=== PATIENT | female | born 1985 | race Caucasian/White ===

== ENCOUNTER 2016-09-25 13:00 | Emergency (ER) | payer MEDICAID ==
[~2016-09-25] VITALS: Ht 162.6 cm; Wt 89.1 kg
[~2016-09-25 13:00] MED LIST: PRENAT PO
[2016-09-25 13:02] VITALS: Ht 162.6 cm; Wt 89.1 kg
[2016-09-25] MEDS ORDERED: SOD CHLORIDE 0.9% 1,000 ML IV STA (13:04)
[2016-09-25] MEDS ORDERED: morphine 4 MG/ML VIAL IV STA (13:04)
[2016-09-25] MEDS ORDERED: ONDANSETRON 4 MG INJ IV STA (13:04)
[2016-09-25 13:34] LABS: BASOPHILS % 0.4 % (0.0-2.0); EOSINOPHILS # 0.4 10^3/ul (0.0-0.5); EOSINOPHILS % 4.2 % (0.0-7.0); HEMATOCRIT 35.4 % (37.0-47.0); HEMOGLOBIN 11.4 g/dl (12.0-16.0); LYMPHOCYTES # 1.9 10^3/ul (0.8-2.9); LYMPHOCYTES % 21.9 % (15.0-51.0); MEAN CORPUSCULAR HEMOGLOBIN 27.9 pg (29.0-33.0); MEAN CORPUSCULAR HGB CONC 32.2 g/dl (32.0-37.0); MEAN CORPUSCULAR VOLUME 86.6 fl (82.0-101.0); MEAN PLATELET VOLUME 10.6 fl (7.4-10.4); MONOCYTE # 0.3 10^3/ul (0.3-0.9); MONOCYTES % 2.9 % (0.0-11.0); NEUTROPHIL # 5.7 10^3/ul (1.6-7.5); NEUTROPHILS % 67.1 % (39.0-77.0); PLATELET COUNT 562 10^3/UL (140-415); RED BLOOD COUNT 4.09 10^6/ul (4.20-5.40); RED CELL DISTRIBUTION WIDTH 14.1 % (11.5-14.5); WHITE BLOOD COUNT 8.5 10^3/ul (4.8-10.8)
[2016-09-25] MEDS ORDERED: DOCU-144 PO (13:34)
[2016-09-25] MEDS ORDERED: HYDR-906 PO (13:34)
[2016-09-25 13:46] LABS: INR 0.97; PARTIAL THROMBOPLASTIN TIME 32.2 Sec (25.0-35.0); PROTIME 12.9 Sec (12.2-14.2)
[2016-09-25 13:49] LABS: ALBUMIN 4.3 g/dl (3.3-4.9); ALBUMIN/GLOBULIN RATIO 1.1; BILIRUBIN,INDIRECT 0.3 mg/dl (0-1.1); BILIRUBIN,TOTAL 0.3 mg/dl (0.2-1.3); CALCIUM 9.1 mg/dl (8.4-10.2); CREATININE 0.65 mg/dl (0.44-1.00); POTASSIUM 4.3 mmol/L (3.5-5.1); TOTAL PROTEIN 8.2 g/dl (6.1-8.1)
[2016-09-25 14:53] VITALS: TEMP 98.1
[2016-09-25 15:03] LABS: ADD UMIC NO; UR ASCORBIC ACID NEGATIVE (NEGATIVE); UR BILIRUBIN (Dip) NEGATIVE (NEGATIVE); UR BLOOD (Dip) NEGATIVE (NEGATIVE); UR CLARITY SLIGHTLY CLOUDY (CLEAR); UR COLOR YELLOW (YELLOW); UR GLUCOSE (Dip) NEGATIVE (NEGATIVE); UR KETONES (Dip) NEGATIVE (NEGATIVE); UR LEUKOCYTE ESTERASE (Dip) NEGATIVE Leu/ul (NEGATIVE); UR MUCUS FEW /HPF (NONE SEEN); UR NITRITE (Dip) NEGATIVE (NEGATIVE); UR RBC 1 /HPF (0-5); UR SPECIFIC GRAVITY (Dip) 1.012 (1.003-1.030); UR SQUAMOUS EPITHELIAL CELL FEW /HPF (FEW); UR TOTAL PROTEIN (Dip) NEGATIVE (NEGATIVE); UR UROBILINOGEN (Dip) NEGATIVE (NEGATIVE)
[2016-09-25] MEDS ORDERED: HYDROmorphONE 1 MG/ML SYG IV STA ×2 (15:15→17:24)
[2016-09-25] MEDS ORDERED: IOHEXOL 300MG/ML 150 ML BTL ONE (15:33)
[2016-09-25] MEDS ORDERED: SOD CHLORIDE 0.9% 100 ML ONE (15:33)
--- NOTE | 2016-09-25 16:12 | RADRPT ---
PROCEDURE: CT Abdomen and Pelvis with contrast. CLINICAL INDICATION: Abdominal pain. Recent pancreas surgery. TECHNIQUE: CT scan of the abdomen and pelvis with contrast was performed . The patient was scanne d following the uncomplicated intravenous administration of 100 cc of Omnipaque 300. Coronal and sa gittal reformatted images were obtained from the axial source images. Images were reviewed on a high -resolution PACS workstation. images. The calculated radiation dose measures 1220.01 mGy centimeters . The CTDI measures 20.23 mGy. One or more of the following dose reduction techniques were used: - Automated exposure control. - Adjustment of the mA and/or kV according to patient size . - Use of iterative reconstruction technique. Images were reviewed on a high-resolution PACS workstation COMPARISON: None. FINDINGS: CT abdomen: The lung bases are remarkable for bibasilar atelectasis. The heart size is normal, without pericard ial thickening or effusion. The liver is normal in size and density without focal mass or intrahepa tic biliary dilatation. The spleen is normal in size and homogeneous in density. The stomach is pa rtially collapsed, but is grossly unremarkable. The patient has undergone partial resection of the pancreatic tail noting sutures in this region and there is also a surgical drain in the left upper q uadrant. There is infiltration in the mesentery and retroperitoneum without an larger drainable flu id collection. The adrenal glands are symmetric and normal. There is no evidence for hydronephrosis or hydroureter. Contour irregularities noted about the right kidney possibly from scarring and radha or infection. Enhancement the right kidney is currently normal. There is a small amount of peritoneal air like related to the recent surgery. There is also a small amount of fluid in the right paracolic gutter and Lopez's pouch. CT pelvis: The small bowel loops situated within the pelvis are unremarkable. The pelvic sidewalls and inguina l regions are clear. The sigmoid colon and rectum are no dilated. There is dense material within th e appendix also noting mild wall thickening and surrounding infiltration. There is an approximately 7.5 x 4.5 cm right ovarian complex cyst. The surrounding osseous structures are intact. No osteolytic or osteoblastic lesion is detected. IMPRESSION: 1. Evidence of recent pancreatic tail resection noting recent postsurgical changes in the soft tiss ues. There is a small amount of fluid in the region of the left pancreatic tail which may represent postoperative seroma. An infected collection cannot be excluded on the basis of CT alone, but no d rainable fluid collection is present. 2. Small amount of free peritoneal air and fluid as well, which may also be related to the recent s urgery, if symptoms persist consider a follow-up CT. 3. Nonspecific appearance of the appendix noting dense material within the appendix and minimal eben rounding infiltration, which could also new from the recent surgery or much less likely appendicitis , to be correlated clinically. 4. Hepatic steatosis. 5. 7.5 x 4.5 cm right ovarian cystic structure which is nonspecific on CT. A non-emergent follow- up ultrasound may be obtained to document resolution. Call report: A call report was made to Dr. Clark at 04:00 p.m. on 09/25/2016. RPTAT: PP .Sacha Humphries MD, Date Time Electronically viewed and signed by .Sacha Humphries MD, on 09/25/2016 16:12 .d/
[2016-09-25] MEDS ORDERED: POLY17PO6 PO (17:07)
[2016-09-25] MEDS ORDERED: OXYC-203 PO (17:07)
[2016-09-25 17:45] VITALS: BP 137/84; PULSE 92; RESP 16
--- NOTE | 2016-09-25 18:20 | ERD ---
ER Documentation Chief Complaint Date/Time DATE: 09/25/16 TIME: 18:14 Chief Complaint abd pain started at 1200 epigastric pain took norco w/o relief HPI 31-year-old female presented to the emergency room with postoperative abdominal pain in her left upper quadrant and left abdomen. She had surgery with resection of the head of her pancreas 2 weeks ago at [facility]. States that they have been considering removing her spleen but they did not need to. She has mild nausea as well as the pain. She had had some pain on and off but beginning at about noon she had some pain that was not relieved by [place]. She denies any fevers and chills. She does not feel weak ROS All systems reviewed and are negative except as per history of present illness. Medications Home Meds Active Scripts Polyethylene Glycol* (Miralax*) 17 Gm Powd.pack, 17 GM PO DAILY, #5 PACKET Prov:SKYLER VILLASHUA 09/25/16 Oxycodone HCl/Acetaminophen (Percocet 7.5-325 mg Tablet) 1 Each Tablet, 1 EACH PO Q6, #20 TAB Prov:MARIA DE JESUS VILLA DO 09/25/16 Reported Medications Hydrocodone/Acetaminophen ([place] 5-325 Tablet) Unknown Strength Tablet, 1 EACH PO DAILY Y for NEEDED, TAB 09/25/16 Docusate Sodium* (Colace*) 100 Mg Capsule, 100 MG PO Q24H Y for CONSTIPATION, # 30 CAP 09/25/16 Discontinued Reported Medications Multivit/Min/Fol Ac/Iron/Pren* ( S*) 1 Tab Tab, 1 TAB PO DAILY, TAB 10/13/15 Allergies Allergies: Coded Allergies: No Known Drug Allergies (Verified Allergy, Mild, 09/25/16) PMhx/Soc History of Surgery: Yes (, sx to pancreas [id number] ago at [facility]) Anesthesia Reaction: No Hx Neurological Disorder: No Hx Respiratory Disorders: No Hx Cardiac Disorders: No Hx Psychiatric Problems: No Hx Miscellaneous Medical Probl: No Hx Alcohol Use: No Hx Substance Use: No Hx Tobacco Use: No Smoking Status: Never smoker Physical Exam Vitals Vital Signs Date Time Temp Pulse Resp B/P Pulse Ox O2 Delivery O2 Flow Rate FiO2 09/25/16 17:45 92 16 137/84 98 Room Air 09/25/16 17:04 77 12 137/74 100 Room Air 09/25/16 14:53 98.1 77 18 117/61 100 Room Air 09/25/16 13:20 98.1 87 18 112/68 99 Room Air 09/25/16 13:02 98.1 110 22 152/72 98 Physical Exam Const: [] Mild distress, stating that she is in significant pain Head: Atraumatic Eyes: Normal Conjunctiva ENT: Normal External Ears, Nose and Mouth. Neck: Full range of motion..~ No meningismus. Resp: Clear to auscultation bilaterally Cardio: Regular rate and rhythm, no murmurs Abd: Soft, mild, no tenderness in the left upper quadrant and left mid abdomen, no guarding or rebound, lower abdominal drain in place that is draining well with the site clean dry and intact, non distended. Normal bowel sounds Skin: No petechiae or rashes Back: No midline or flank tenderness Ext: No cyanosis, or edema Neur: Awake and alert and oriented 3, no focal deficits Psych: Normal Mood and Affect Result Diagram: 09/25/16 1305 09/25/16 1305 Results 24 hrs Laboratory Tests Test 09/25/16 13:05 09/25/16 14:30 09/25/16 15:36 White Blood Count 8.510^3/ul Red Blood Count 4.0910^6/ul Hemoglobin 11.4g/dl Hematocrit 35.4% Mean Corpuscular Volume 86.6fl Mean Corpuscular Hemoglobin 27.9pg Mean Corpuscular Hemoglobin Concent 32.2g/dl Red Cell Distribution Width 14.1% Platelet Count 96608^3/UL Mean Platelet Volume 10.6fl Neutrophils % 67.1% Lymphocytes % 21.9% Monocytes % 2.9% Eosinophils % 4.2% Basophils % 0.4% Nucleated Red Blood Cells % 0.0/100WBC Neutrophils # 5.710^3/ul Lymphocytes # 1.910^3/ul Monocytes # 0.310^3/ul Eosinophils # 0.410^3/ul Basophils # 0.010^3/ul Nucleated Red Blood Cells # 0.010^3/ul Prothrombin Time 12.9Sec Prothrombin Time Ratio 1.0 INR International Normalized Ratio 0.97 Activated Partial Thromboplast Time 32.2Sec Sodium Level 142mmol/L Potassium Level 4.3mmol/L Chloride Level 101mmol/L Carbon Dioxide Level 24mmol/L Anion Gap 21 Blood Urea Nitrogen 12mg/dl Creatinine 0.65mg/dl Glucose Level 114mg/dl Lactic Acid Level 2.1mmol/L Calcium Level 9.1mg/dl Total Bilirubin 0.3mg/dl Direct Bilirubin 0.00mg/dl Indirect Bilirubin 0.3mg/dl Aspartate Amino Transf (AST/SGOT) 33IU/L Alanine Aminotransferase (ALT/SGPT) 41IU/L Alkaline Phosphatase 80IU/L Total Protein 8.2g/dl Albumin 4.3g/dl Globulin 3.90g/dl Albumin/Globulin Ratio 1.10 Lipase 122U/L Urine Color YELLOW Urine Clarity SLIGHTLY CLOUDY Urine pH 6.0 Urine Specific [place] 1.012 Urine Ketones NEGATIVEmg/dL Urine Nitrite NEGATIVEmg/dL Urine Bilirubin NEGATIVEmg/dL Urine Urobilinogen NEGATIVEmg/dL Urine Leukocyte Esterase NEGATIVELeu/ul Urine Microscopic RBC 1/HPF Urine Microscopic WBC 1/HPF Urine Squamous Epithelial Cells FEW/HPF Urine Mucus FEW/HPF Urine Hemoglobin NEGATIVEmg/dL Urine Glucose NEGATIVEmg/dL Urine Total Protein NEGATIVEmg/dl Serum HCG, Qualitative NEGATIVE Current Medications Medications (Trade) Dose Ordered Sig/Mike Route PRN Reason Start Time Stop Time Status Last Admin Dose Admin Sodium Chloride (NS) 1,000 ml @ 1,000 mls/hr Q1H STAT IV 09/25/16 13:04 09/25/16 14:03 DC 09/25/16 13:19 Morphine Sulfate (morphine) 6 mg ONCE STAT IV 09/25/16 13:04 09/25/16 13:06 DC 09/25/16 13:19 Ondansetron HCl (Zofran Inj) 4 mg ONCE STAT IV 09/25/16 13:04 09/25/16 13:06 DC 09/25/16 13:18 Hydromorphone HCl (Dilaudid) 1 mg ONCE STAT IV 09/25/16 15:15 09/25/16 15:16 DC 09/25/16 15:22 IV Flush 10 ml 10 ml STK-MED ONCE .ROUTE 09/25/16 15:33 09/25/16 15:34 DC 09/25/16 15:46 Sodium Chloride (NS) 100 ml @ ud STK-MED ONCE .ROUTE 09/25/16 15:33 09/25/16 15:34 DC 09/25/16 15:46 Iohexol (Omnipaque 300mg/ ml) 150 ml STK-MED ONCE .ROUTE 09/25/16 15:33 09/25/16 15:34 DC 09/25/16 15:46 Hydromorphone HCl (Dilaudid) 1 mg ONCE STAT IV 09/25/16 17:24 09/25/16 17:25 DC Procedures/MDM Patient with postoperative abdominal pain at the site without evidence of acute infection. Initial tachycardia increased respiratory rate immediately converted to stable vital signs on recheck prior to medication administration. Patient was given Zofran, a liter of normal saline as well as morphine and Dilaudid which made her pain feel much better. I spoke with the radiologist who read her CT she has normal postoperative changes. I offered the patient admission if she still had any significant pain. She said that she would prefer to go home. I told her return to the emergency room immediately if she has any return of pain. She is in stable condition. I am advising her to go to visit her surgeon at [facility] first thing on Tuesday. CT abdomen pelvis interpretation with contrast: Normal postoperative fluid and postoperative changes in the left upper quadrant. I also see moderate retained stool throughout the colon. No obstruction, very mild free air. No fractures Departure Diagnosis: Primary Impression: Post-op pain Additional Impression: Acute abdominal pain Condition: Stable Patient Instructions: Post Op Wound Check, Pain Additional Instructions: Return to [facility] Tuesday for recheck. MARIA DE JESUS VILLA DO Sep 25, 2016 18:20
== END 2016-09-25 17:51 | disposition home or self-care (01) ==
LOC: E/R 13:00
DX: G89.18 Other acute postprocedural pain (principal); R10.12 Left upper quadrant pain; R11.0 Nausea
CPT/HCPCS: 36415; 74177; 80053; 81001; 83605; 83690; 84703; 85025; 85610; 85730; 96374; 96375; J1170; J2270; J2405; J7030; Q9967; Z7502; Z7610; 81003

== ENCOUNTER 2016-09-25 18:34 | Inpatient (IN) | payer MEDICAID ==
[~2016-09-25] VITALS: Ht 162.6 cm; Wt 89.4 kg
[~2016-09-25 18:34] MED LIST changes: +DOCU-144 PO; +HYDR-906 PO; +OXYC-203 PO; +POLY17PO6 PO
[2016-09-25] MEDS ORDERED: SODIUM CHLORIDE 0.9% 1L BAG IV* STA (19:08)
[2016-09-25] MEDS ORDERED: PIPER-TAZO 3.375 GM IV (PMX) 100 ML IVPB STA (19:08)
[2016-09-25 19:20] LABS: BASOPHIL # 0.1 10^3/ul (0.0-0.1); BASOPHILS % 0.3 % (0.0-2.0); EOSINOPHILS # 0.3 10^3/ul (0.0-0.5); EOSINOPHILS % 1.6 % (0.0-7.0); HEMATOCRIT 34.7 % (37.0-47.0); LYMPHOCYTES # 2.7 10^3/ul (0.8-2.9); LYMPHOCYTES % 12.7 % (15.0-51.0); MEAN CORPUSCULAR HEMOGLOBIN 27.8 pg (29.0-33.0); MEAN CORPUSCULAR HGB CONC 31.7 g/dl (32.0-37.0); MEAN CORPUSCULAR VOLUME 87.8 fl (82.0-101.0); MEAN PLATELET VOLUME 10.9 fl (7.4-10.4); MONOCYTE # 0.6 10^3/ul (0.3-0.9); MONOCYTES % 2.9 % (0.0-11.0); NEUTROPHIL # 17.4 10^3/ul (1.6-7.5); NEUTROPHILS % 81.2 % (39.0-77.0); PLATELET COUNT 599 10^3/UL (140-415); RED BLOOD COUNT 3.95 10^6/ul (4.20-5.40); RED CELL DISTRIBUTION WIDTH 14.4 % (11.5-14.5); WHITE BLOOD COUNT 21.4 10^3/ul (4.8-10.8)
--- NOTE | 2016-09-25 19:53 | RADRPT ---
PROCEDURE: XR Chest. CLINICAL INDICATION: Sepsis. Shortness of breath. TECHNIQUE: Single frontal view. COMPARISON: None. FINDINGS: There is atelectasis at both lung bases and low lung volumes. The lungs are otherwise clear. The heart size is normal. There is no pleural effusion. There is no pneumothorax. IMPRESSION: 1. Atelectasis at the lung bases and low lung volumes. 2. Otherwise normal chest x-ray. RPTAT: QQ .Michael Stevenson MD, MD Date Time Electronically viewed and signed by .Michael Stevenson MD, MD on 09/25/2016 19:52 .R/
[2016-09-25] MEDS ORDERED: HYDROmorphONE 1 MG/ML SYG IV STA ×2 (20:01→22:36)
[2016-09-25 22:00] VITALS: TEMP 98.6
--- NOTE | 2016-09-25 22:28 | ERA ---
ER Documentation Chief Complaint Date/Time DATE: 09/25/16 TIME: 22:20 Chief Complaint FELT DIZZY/NEAR SYNCOPAL EPISODE HPI This 31-year-old female who I had recently discharged because she felt well and wanted to go home returns for a near syncopal episode where she got very lightheaded in the waiting room. Blood pressure was low at that time. Still has left upper quadrant abdominal pain as before and had a pancreatic resection 2 weeks ago easily however. CT head showed normal postop changes. Patient had no signs of infection at that time. ROS All systems reviewed and are negative except as per history of present illness. Medications Home Meds Active Scripts Polyethylene Glycol* (Miralax*) 17 Gm Powd.pack, 17 GM PO DAILY, #5 PACKET Prov:MARIA DE JESUS VILLA 09/25/16 Oxycodone HCl/Acetaminophen (Percocet 7.5-325 mg Tablet) 1 Each Tablet, 1 EACH PO Q6, #20 TAB Prov:ALLENSKYLERMARIA DE JESUSJOSEPH MCBRIDE 09/25/16 Reported Medications Hydrocodone/Acetaminophen ([place] 5-325 Tablet) Unknown Strength Tablet, 1 EACH PO DAILY Y for NEEDED, TAB 09/25/16 Docusate Sodium* (Colace*) 100 Mg Capsule, 100 MG PO Q24H Y for CONSTIPATION, # 30 CAP 09/25/16 Discontinued Reported Medications Multivit/Min/Fol Ac/Iron/Pren* ( S*) 1 Tab Tab, 1 TAB PO DAILY, TAB 10/13/15 Allergies Allergies: Coded Allergies: No Known Drug Allergies (Verified Allergy, Mild, 09/25/16) PMhx/Soc History of Surgery: Yes (, sx to pancreas [id number] ago at [facility]) Anesthesia Reaction: No Hx Neurological Disorder: No Hx Respiratory Disorders: No Hx Cardiac Disorders: No Hx Psychiatric Problems: No Hx Miscellaneous Medical Probl: No Hx Alcohol Use: No Hx Substance Use: No Hx Tobacco Use: No Smoking Status: Never smoker Physical Exam Vitals Vital Signs Date Time Temp Pulse Resp B/P Pulse Ox O2 Delivery O2 Flow Rate FiO2 09/25/16 22:00 98.6 87 18 121/64 99 Room Air 09/25/16 20:00 98.6 95 16 123/58 100 Room Air 09/25/16 18:46 98.6 92 16 104/53 96 Room Air 09/25/16 18:34 98.6 65 16 73/50 96 Physical Exam Const: [] Moderate distress Head: Atraumatic Eyes: Normal Conjunctiva ENT: Normal External Ears, Nose and Mouth. Neck: Full range of motion..~ No meningismus. Resp: Clear to auscultation bilaterally Cardio: Regular tachycardia, no murmurs Abd: Soft, mild to moderate left upper quadrant tenderness without guarding or rebound, surgical drain in place in left mid abdomen, no signs of surrounding erythema non distended. Normal bowel sounds Skin: No petechiae or rashes Back: No midline or flank tenderness Ext: No cyanosis, or edema Neur: Awake and alert and oriented 3, no focal deficits Psych: Normal Mood and Affect Result Diagram: 09/25/16 0047 Results 24 hrs Laboratory Tests Test 09/25/16 18:48 09/25/16 19:08 09/25/16 21:00 White Blood Count 21.410^3/ul Red Blood Count 3.9510^6/ul Hemoglobin 11.0g/dl Hematocrit 34.7% Mean Corpuscular Volume 87.8fl Mean Corpuscular Hemoglobin 27.8pg Mean Corpuscular Hemoglobin Concent 31.7g/dl Red Cell Distribution Width 14.4% Platelet Count 99589^3/UL Mean Platelet Volume 10.9fl Neutrophils % 81.2% Lymphocytes % 12.7% Monocytes % 2.9% Eosinophils % 1.6% Basophils % 0.3% Nucleated Red Blood Cells % 0.0/100WBC Neutrophils # 17.410^3/ul Lymphocytes # 2.710^3/ul Monocytes # 0.610^3/ul Eosinophils # 0.310^3/ul Basophils # 0.110^3/ul Nucleated Red Blood Cells # 0.010^3/ul Lactic Acid Level 2.0mmol/L 1.8mmol/L Current Medications Medications (Trade) Dose Ordered Sig/Mike Route PRN Reason Start Time Stop Time Status Last Admin Dose Admin Sodium Chloride 2720 ml 2,720 ml BOLUS OVER 2 HOURS STAT IV* 09/25/16 19:08 09/25/16 19:10 DC 09/25/16 19:18 Piperacillin Sod/ Tazobactam Sod (Zosyn 3.375gm/ 100 ml (Pmx)) 100 ml @ 200 mls/hr ONCE STAT IVPB 09/25/16 19:08 09/25/16 19:37 DC 09/25/16 19:18 Hydromorphone HCl (Dilaudid) 1 mg ONCE STAT IV 09/25/16 20:01 09/25/16 20:02 DC 09/25/16 20:08 Procedures/MDM Postop abdominal pain 2 weeks post surgery with abdominal pain, lightheadedness and now elevated white blood cell count. Meet sepsis criteria for leukocytosis and low blood pressure. CT had showed no significant abdominal findings. Considering patient did have episode of lightheadedness with transient hypotension and is postop diagnosis of sepsis seems appropriate. Patient was given Zosyn and vancomycin. Cultures were taken. Repeat white blood cell count shows significant leukocytosis whereas couple hours ago she did not have an elevated white blood cell count. Ideally the patient would be a easily however she can see the surgeons that did her procedure. Currently there seems to be no surgical need with normal postop CAT scan. I am ordering a culture from her NILESH drain to look for signs of infection there. Dr. correa is admitting. EKG interpretation: Normal sinus rhythm rate of 91, normal axis, normal intervals, no ST or T-wave changes concerning for acute ischemia. Normal EKG compliance monitor interpretation: Occasional sinus tachycardia otherwise normal sinus rhythm with no arrhythmias. Chest x-ray interpretation: I see no acute process. No infiltrate, no pulmonary edema, no fracture, no widened mediastinum. Critical care time 31 minutes: This includes management of technical sepsis in a postoperative patient, careful fluid administration, early antibiotic administration, multiple visits the patient's bedside to reassess status, review of chart, treatment of unstable vital signs, consideration of invasive procedures such as central line, discussion with patient and admitting doctor. This does not include any billable procedures. Departure Diagnosis: Primary Impression: Sepsis Additional Impressions: Postoperative abdominal pain Leukocytosis MARIA DE JESUS IVLLA DO Sep 25, 2016 22:28
[2016-09-25] MEDS ORDERED: VANCOMYCIN 1 GM (PMX) 250 ML IVPB SCH (22:30)
[2016-09-25] MEDS ORDERED: ONDANSETRON 4 MG INJ IV STA (22:36)
[2016-09-25] MEDS ORDERED: SOD CHLORIDE 0.9% 1,000 ML IV SCH (22:57)
[2016-09-25] MEDS ORDERED: ACETAMINOPHEN 325 MG TAB PO PRN (23:00)
[2016-09-25] MEDS ORDERED: ONDANSETRON 4 MG INJ IV PRN (23:00)
[2016-09-26] VITALS (14 sets, daily range): BP systolic 97–120; BP diastolic 53–69; PULSE 86–121; RESP 14–20; Ht 162.6 cm; Wt 89.4 kg
[2016-09-26] MEDS ORDERED: DIPHENHYDRAMINE 50 MG INJ ONE (00:36)
[2016-09-26] MEDS ORDERED: DIPHENHYDRAMINE 50 MG INJ IV ONE (01:00)
[2016-09-26] MEDS ORDERED: HYDROCODONE/APAP (10/325) TAB PO PRN (02:00)
[2016-09-26] MEDS ORDERED: ONDANSETRON 4 MG INJ IV PRN (02:00)
[2016-09-26] MEDS: morphine 2 MG INJ IV PRN ×4 (02:04→20:14)
[2016-09-26] MEDS: PIPER-TAZO 3.375 GM IV (PMX) 100 ML IVPB SCH ×3 (05:19→17:56)
[2016-09-26 05:24] LABS: BASOPHILS % 0.2 % (0.0-2.0); EOSINOPHILS # 0.1 10^3/ul (0.0-0.5); EOSINOPHILS % 1.1 % (0.0-7.0); HEMATOCRIT 28.7 % (37.0-47.0); HEMOGLOBIN 9.2 g/dl (12.0-16.0); LYMPHOCYTES # 1.5 10^3/ul (0.8-2.9); LYMPHOCYTES % 11.3 % (15.0-51.0); MEAN CORPUSCULAR HGB CONC 32.1 g/dl (32.0-37.0); MEAN CORPUSCULAR VOLUME 87.2 fl (82.0-101.0); MEAN PLATELET VOLUME 10.8 fl (7.4-10.4); MONOCYTE # 0.7 10^3/ul (0.3-0.9); MONOCYTES % 5.4 % (0.0-11.0); NEUTROPHIL # 10.7 10^3/ul (1.6-7.5); NEUTROPHILS % 80.9 % (39.0-77.0); PLATELET COUNT 440 10^3/UL (140-415); RED BLOOD COUNT 3.29 10^6/ul (4.20-5.40); RED CELL DISTRIBUTION WIDTH 14.5 % (11.5-14.5); WHITE BLOOD COUNT 13.3 10^3/ul (4.8-10.8)
[2016-09-26 05:45] LABS: ALBUMIN/GLOBULIN RATIO 0.93; BILIRUBIN,INDIRECT 0.4 mg/dl (0-1.1); BILIRUBIN,TOTAL 0.4 mg/dl (0.2-1.3); CALCIUM 8.4 mg/dl (8.4-10.2); CREATININE 0.51 mg/dl (0.44-1.00); MAGNESIUM 1.7 mg/dl (1.7-2.5); POTASSIUM 3.8 mmol/L (3.5-5.1); TOTAL PROTEIN 6.2 g/dl (6.1-8.1)
--- NOTE | 2016-09-26 07:38 | HP ---
Date/Time of Note Date/Time of Note DATE: 09/26/16 TIME: 07:26 Assessment/Plan Lines/Catheters IV Catheter Type (from [facility]): Saline Lock Urinary Cath still in place: No Assessment/Plan Assessment/Plan 1. Near syncope: Most likely secondary to hypotension as a result of dehydration -Continue to monitor telemetry unit. Will obtain a 2D echo. Continue IV fluid. Will trend her troponin. Continue pain management as it might have been a contributing factor. 2. SIRS: As evidenced by leukocytosis and tachycardia. -Urinalysis was negative for UTI. Will send fluid from the NILESH drain for culture - will empirically treat his antibiotic 3. History of pancreatic cysts, status post cystectomy, at [facility] 2 weeks ago with the placement of a NILESH drain -Patient has a follow-up appointment at [facility] in [address] surgical consult here as needed. 4. Right ovarian cyst. -Patient will be instructed to follow-up as outpatient with her primary care doctor to follow this up with ultrasound periodically HPI/ROS Admit Date/Time Admit Date/Time Sep 25, 2016 at 22:58 Hx of Present Illness This is a 31-year-old female with a history of pancreatic cysts status post surgical removal at [facility] 2 weeks ago. Patient initially came to the ER complaining of abdominal pain. CT abdomen and pelvis was done which showed postop changes. Nonspecific appearance of the appendix most likely secondary to recent surgery versus possibly appendicitis and 7.5 cm x 4.5 cm right ovarian cyst. Reportedly patient was feeling well and was also wanted to go home and as such she was discharged. However while patient was sitting outside waiting for her to pick her up, she said she felt dizzy, blacked out, was sweating and was about to faint. She was taken back to the ER and found to have a blood pressure was 73/56. Her white count was also noted to be 21,000. Patient was admitted for further evaluation. Patient still has NILESH drain from her recent surgery. She has an appointment to follow-up at [facility] in 3 days. Patient denied chest pain palpitation fever chills. She did report nausea but no vomiting over the past few days associated with her abdominal pain. Last bowel movement was a day and a half ago but patient stated that as she has not been eating much because of abdominal pain. She is able to pass gas however. PMH/Family/Social Social History Smoking Status: Never smoker Exam/Review of Systems Vital Signs Vitals Vital Signs Date Time Temp Pulse Resp B/P Pulse Ox O2 Delivery O2 Flow Rate FiO2 09/26/16 01:31 98.9 94 19 118/67 94 09/25/16 22:00 Room Air Intake and Output 09/25/16 09/25/16 09/26/16 15:00 23:00 07:00 Intake Total 430 ml Output Total 670 ml Balance -240 ml Labs Result Diagram: 09/26/1644509/26/16445 Medications Medications Current Medications Piperacillin Sod/ Tazobactam Sod (Zosyn 3.375gm/ 100 ml (Pmx)) 100 ml @ 200 mls /hr Q6 IVPB Last administered on 09/26/16 05:19; Admin Dose 200 MLS/HR; Start 09/26/16 at 06:00 Ondansetron HCl (Zofran Inj) 4 mg Q6H PRN IV NAUSEA AND/OR VOMITING; Start at 02:00 Acetaminophen/ Hydrocodone Bitart ([place] (10/325)) 1 tab Q6H PRN PO PAIN Last administered on 09/26/16 05:25; Admin Dose 1 TAB; Start 09/26/16 at 02:00 Morphine Sulfate (morphine) 2 mg Q4H PRN IV PAIN LEVEL 6-10 Last administered on 09/26/16 02:04; Admin Dose 2 MG; Start 09/26/16 at 02:00 Docusate Sodium (Colace) 100 mg BID PO ; Start 09/26/16 at 09:00 KAYLEY MILLARD MD Sep 26, 2016 07:37
[2016-09-26] MEDS: DOCUSATE SODIUM 100 MG CAP PO SCH ×2 (09:18→20:25)
[2016-09-26] MEDS: SOD CHLORIDE 0.9% 1,000 ML IV SCH ×2 (10:02→16:02)
[2016-09-26] MEDS ORDERED: LORAZEPAM 2 MG INJ IV ONE (10:30)
[2016-09-26 12:10] LABS: HEMATOCRIT 27.8 % (37.0-47.0); HEMOGLOBIN 8.9 g/dl (12.0-16.0)
--- NOTE | 2016-09-26 13:04 | CONS ---
Date/Time of Note Date/Time of Note DATE: 09/26/16 TIME: 13:02 Assessment/Plan Assessment/Plan Additional Assessment/Plan [facility] INPATIENT CONSULTATION NOTE DATE OF SERVICE: 09/26/2016 PLACE OF SERVICE: [facility], fifth floor telemetry ASSESSMENT AND PLAN: A very-pleasant 31-year-old lady with a few comorbidities including BMI 33.8, recently status post pancreatic surgery at outside hospital (details missing; unknown indication and unknown operative findings) presenting with abdominal pain and near syncope associated with elevated white blood cell count concerning for sepsis and pancreatic leak. Free air in the abdomen is minimal and could be related to recent operation, but other etiologies should be considered such as perforated viscus. Patient does have a higher than usual amount of anxiety, but this should not confuse the clinical picture and surgical complications and medical issues should be aggressively pursued. I have strongly recommended that the patient be transferred to the original surgeon for continuity of care. I explained all of the above in detail with the patient and her and answered all their questions to the best my ability. I believe that they understand and agree with the plans. With above assessment, I've recommended the followin. Agree with hospitalization 2. Trend amylase and lipase 3. Trend lactic acid 4. Trend hemoglobin 5. Treat symptoms 6. Fluid resuscitation 7. Agree with broad-spectrum antimicrobials for now 8. Drain fluid amylase check 9. Strongly recommend transfer to original surgeon for continuity of care 10. Request records from outside hospital 11. May consider HIDA scan to further clarify clinical picture 12. Keep n.p.o. for now 13. Treat anxiety Thank you very much for having me involved in the care of this very pleasant patient and wonderful family. If you have any questions, please feel free to contact me at [phone]. Nature of presenting problem: High severity Please note that, given the extensive number of diagnoses or management options , the extensive amount and/or complexity of data needed to be reviewed, and high risk of complications and/or morbidity or mortality, this qualifies as high complexity type of decision-making. Disclaimer: Inadvertent spelling and grammatical errors are likely due to EHR/ dictation software use and do not reflect on the quality of delivered patient care. Also, please note that the electronic time recorded on this node does not necessarily reflect the actual time of the visit. Updated clinical summary: Patient is a very-pleasant 31-year-old lady with a few comorbidities including BMI 33.8, recently status post pancreatic surgery at outside hospital (details missing; unknown indication and unknown operative findings) presenting with abdominal pain and near syncope associated with elevated white blood cell count concerning for sepsis and pancreatic leak. Comorbidities: 1. BMI 33.8 2. Recent pancreatic tail resection (unknown details; [facility] 09/18/2016); CT abdomen and pelvis findings [facility] 09/25/2016: "Noting recent postsurgical changes in the soft tissues. There is a small amount of fluid in the region of the left pancreatic tail which may represent postoperative seroma. An infected collection cannot be excluded on the basis of CT alone, but no drainable fluid collection is present. Small amount of free peritoneal air and fluid as well, which may also be related to the recent surgery, if symptoms persist consider a follow-up CT." 3. Hepatic steatosis. (CT abdomen and pelvis [facility] 09/25) 4. 7.5 x 4.5 cm right ovarian cystic structure which is nonspecific on CT. A non-emergent follow-up ultrasound may be obtained to document resolution. (CT abdomen and pelvis [facility] 09/25/2016) 5. CONSULTATION REQUESTED BY: Mary Stuart MD HISTORY OF PRESENT ILLNESS: The patient is a very pleasant 31-year-old lady with above-mentioned comorbidities whom we were kindly asked consult regarding surgical management of her abdominal findings. Patient recently had surgery at [facility] where reportedly a pancreatic cyst was removed. Details are missing and we are in the process of obtaining outside records. Patient was originally seen at [facility] and was referred for this operation to [facility] per patient's and family's report. Patient was seen in our emergency department yesterday for abdominal pain. She was evaluated and was deemed to be medically stable enough to discharge and to follow-up with her original physicians as an outpatient. Note that her initial white blood cell count was 8.5 and her laboratory values were for the most part normal. She had a near syncopal episode while waiting outside of the emergency department to get picked up to go home. She was readmitted to the hospital due to those. Since then, she has been complaining of abdominal pain. Her workup included a repeat white blood cell count that was significantly elevated (21.4) , but a CT scan that demonstrated essentially postoperative findings without obvious evidence of an abscess, hematoma, perforated viscus (small amount of free air noted but could be due to recent operation), bowel obstruction, hernia , or other major surgical findings. Gallbladder does appear to be distended but not obviously inflamed. Appendix contains a few appendicoliths but otherwise is unremarkable. I was kindly asked to consult regarding her care from a hepatobiliary standpoint. During my visit, the patient had abdominal pain complaints. She also mentioned that it was difficult to breathe somewhat and no chest pain. Note that she appears to be anxious and had pain disproportionate to physical findings throughout her abdomen including her neck area as well as around her wrists and ankles. No other complaints during my visit. Associated nausea but no vomiting. Last bowel movement was 2 days ago. Positive flatus. ALLERGIES: NO KNOWN DRUG ALLERGIES MEDICATIONS Documented in the electronic records and reviewed by me. Please see the electronic records for details, as well as details for inpatient medications which were also reviewed by me. Home medications include MiraLAX, Percocet, Genoa, Colace, and multivitamins. SOCIAL HISTORY: The patient lives with family.-Tob;-ETOH;-IVDU FAMILY HISTORY: There are no significant medical, surgical or oncologic issues in the family as reported by the patient or reflected in the chart. REVIEW OF SYSTEMS: Other than mentioned above, there were no other pertinent positives or pertinent negatives in an otherwise complete 14 point review of systems. PHYSICAL EXAMINATION GENERAL: The patient appears to be a very pleasant lady of descent lying in bed, appearing stated age, and appearing to be in mild-to- moderate distress, although unclear how much is due to anxiety. BMI: 33.8 VITAL SIGNS: AVSS (please also see auto important data if available as well as the electronic records) HEENT: Normocephalic and atraumatic. Extraocular muscles and hearing are grossly intact bilaterally and symmetrically. Sclerae are nonicteric. Oral cavity is clear; oral mucosa appear to be pink and moist. Dentition: Fair to poor with some missing teeth. NECK: Supple. There is no lymphadenopathy or JVD. There is no submental, submandibular or supraclavicular lymphadenopathy. CHEST: Rises symmetrically with each breath; patient is breathing comfortably. There are no audible wheezes, rales or rhonchi on the gross exam. HEART: Pulse is regular and palpable on the right wrist. Capillary refill is normal. Carotid pulses are palpable bilaterally and symmetrically in the neck. EXTREMITIES: Lower extremities contain no pitting edema around the ankles bilaterally and symmetrically. ABDOMEN: Abdomen is soft, mildly tender in all quadrants and nondistended. No evidence of ascites, organomegaly, caput medusae, engorged subcutaneous veins, or other abnormalities. There are no peritoneal signs or guarding. Surgical drain left upper quadrant with serosanguineous fluid trending more toward sanguinous. No roby blood. SKIN: Appears to be pink and feels warm to touch. NEUROLOGIC: Awake, alert, and follows commands appropriately. LABORATORY DATA: White blood cell count 13.3 down from 21.4 yesterday. Hemoglobin 8.9 after resuscitation. Platelets 440 electrolytes normal. CO2 23. Lactic acid at 2 on admission down to 1.4. Liver function and injury parameters normal. Creatinine 0.51. Albumin 3.0 after some resuscitation. Lipase yesterday was 122. Serum test negative. INR yesterday was 0.97 urinalysis yesterday was negative for nitrites or leukocyte Estrace. IMAGING: See electronic chart. Please note that I've personally reviewed all pertinent available images and I agree in general with their overall reported findings. CT scan abdomen and pelvis [facility] 09/25/2016 IMPRESSION: 1. Evidence of recent pancreatic tail resection noting recent postsurgical changes in the soft tissues. There is a small amount of fluid in the region of the left pancreatic tail which may represent postoperative seroma. An infected collection cannot be excluded on the basis of CT alone, but no drainable fluid collection is present. 2. Small amount of free peritoneal air and fluid as well, which may also be related to the recent surgery, if symptoms persist consider a follow-up CT. 3. Nonspecific appearance of the appendix noting dense material within the appendix and minimal surrounding infiltration, which could also new from the recent surgery or much less likely appendicitis, to be correlated clinically. 4. Hepatic steatosis. 5. 7.5 x 4.5 cm right ovarian cystic structure which is nonspecific on CT. A non-emergent follow-up ultrasound may be obtained to document resolution. Consultation Date/Type/Reason Admit Date/Time Sep 25, 2016 at 22:58 Social History Smoking Status: Never smoker Exam/Review of Systems Vital Signs Vitals Vital Signs Date Time Temp Pulse Resp B/P Pulse Ox O2 Delivery O2 Flow Rate FiO2 09/26/16 12:28 112 09/26/16 11:50 98.4 19 110/62 94 09/26/16 10:10 Room Air Intake and Output 09/25/16 09/25/16 09/26/16 15:00 23:00 07:00 Intake Total 430 ml Output Total 670 ml Balance -240 ml Results Result Diagram: 09/26/16 1137 09/26/16 0446 Results 24 hrs Laboratory Tests Test 09/25/16 18:48 09/25/16 19:08 09/25/16 21:00 09/25/16 23:05 White Blood Count 21.4 #H Red Blood Count 3.95 L Hemoglobin 11.0 L Hematocrit 34.7 L Mean Corpuscular Volume 87.8 Mean Corpuscular Hemoglobin 27.8 L Mean Corpuscular Hemoglobin Concent 31.7 L Red Cell Distribution Width 14.4 Platelet Count 599 H Mean Platelet Volume 10.9 H Neutrophils % 81.2 H Lymphocytes % 12.7 L Monocytes % 2.9 Eosinophils % 1.6 Basophils % 0.3 Nucleated Red Blood Cells % 0.0 Neutrophils # 17.4 H Lymphocytes # 2.7 Monocytes # 0.6 Eosinophils # 0.3 Basophils # 0.1 Nucleated Red Blood Cells # 0.0 Lactic Acid Level 2.0 1.8 1.4 Test 09/26/16 04:46 09/26/16 11:37 White Blood Count 13.3 #H Red Blood Count 3.29 L Hemoglobin 9.2 L 8.9 L Hematocrit 28.7 L 27.8 L Mean Corpuscular Volume 87.2 Mean Corpuscular Hemoglobin 28.0 L Mean Corpuscular Hemoglobin Concent 32.1 Red Cell Distribution Width 14.5 Platelet Count 440 #H Mean Platelet Volume 10.8 H Neutrophils % 80.9 H Lymphocytes % 11.3 L Monocytes % 5.4 Eosinophils % 1.1 Basophils % 0.2 Nucleated Red Blood Cells % 0.0 Neutrophils # 10.7 H Lymphocytes # 1.5 Monocytes # 0.7 Eosinophils # 0.1 Basophils # 0.0 Nucleated Red Blood Cells # 0.0 Sodium Level 142 Potassium Level 3.8 Chloride Level 105 Carbon Dioxide Level 23 Anion Gap 18 H Blood Urea Nitrogen 8 Creatinine 0.51 Glucose Level 104 Calcium Level 8.4 Phosphorus Level 4.0 Magnesium Level 1.7 Total Bilirubin 0.4 Direct Bilirubin 0.00 Indirect Bilirubin 0.4 Aspartate Amino Transf (AST/SGOT) 16 Alanine Aminotransferase (ALT/SGPT) 28 Alkaline Phosphatase 65 Total Protein 6.2 # Albumin 3.0 #L Globulin 3.20 Albumin/Globulin Ratio 0.93 Medications Medications Current Medications Piperacillin Sod/ Tazobactam Sod (Zosyn 3.375gm/ 100 ml (Pmx)) 100 ml @ 200 mls /hr Q6 IVPB Last administered on 09/26/16 11:20; Admin Dose 200 MLS/HR; Start 09/26/16 at 06:00 Ondansetron HCl (Zofran Inj) 4 mg Q6H PRN IV NAUSEA AND/OR VOMITING Last administered on 09/26/16 08:08; Admin Dose 4 MG; Start 09/26/16 at 02:00 Acetaminophen/ Hydrocodone Bitart (Genoa (10/325)) 1 tab Q6H PRN PO PAIN Last administered on 09/26/16 05:25; Admin Dose 1 TAB; Start 09/26/16 at 02:00 Morphine Sulfate (morphine) 2 mg Q4H PRN IV PAIN LEVEL 6-10 Last administered on 09/26/16 07:34; Admin Dose 2 MG; Start 09/26/16 at 02:00 Docusate Sodium 100 mg 100 mg BID PO Last administered on 09/26/16 09:18; Admin Dose 100 MG; Start 09/26/16 at 09:00 Sodium Chloride (NS) 1,000 ml @ 150 mls/hr Q6H40M IV Last administered on 09/26 10:02; Admin Dose 150 MLS/HR; Start 09/26/16 at 09:30 DAVID BYRD M.D. Sep 26, 2016 13:04
[2016-09-26 13:09] LABS: AMYLASE 80 U/L (11-123)
[2016-09-26] MEDS ORDERED: HYDROmorphONE 1 MG/ML SYG IV PRN (14:00)
[2016-09-26] MEDS ORDERED: LORAZEPAM 2 MG INJ IV PRN (14:00)
--- NOTE | 2016-09-26 14:01 | DS ---
Date/Time of Note Date/Time of Note DATE: 09/26/16 TIME: 13:59 Discharge Summary Admission/Discharge Info Admit Date/Time Sep 25, 2016 at 22:58 Discharge Date/Time Patient Condition: Stable Hx of Present Illness This is a 31-year-old female with a history of pancreatic cysts status post surgical removal at [facility] 2 weeks ago. Patient initially came to the ER complaining of abdominal pain. CT abdomen and pelvis was done which showed postop changes. Nonspecific appearance of the appendix most likely secondary to recent surgery versus possibly appendicitis and 7.5 cm x 4.5 cm right ovarian cyst. Reportedly patient was feeling well and was also wanted to go home and as such she was discharged. However while patient was sitting outside waiting for her to pick her up, she said she felt dizzy, blacked out, was sweating and was about to faint. She was taken back to the ER and found to have a blood pressure was 73/56. Her white count was also noted to be 21,000. Patient was admitted for further evaluation. Patient still has NILESH drain from her recent surgery. She has an appointment to follow-up at [facility] in 3 days. Patient denied chest pain palpitation fever chills. She did report nausea but no vomiting over the past few days associated with her abdominal pain. Last bowel movement was a day and a half ago but patient stated that as she has not been eating much because of abdominal pain. She is able to pass gas however. Hospital Course Problem list Severe abdominal pain Recent pancreatic cystectomy Pancreatic leak Near-syncope Sepsis History of pancreatic cyst Right ovarian cyst Hypotension, mild Patient is a 31-year-old female with a past medical history significant for recent pancreatic cystectomy done at [facility] 2 weeks ago. Patient presented to [facility] for abdominal pain and was admitted for near syncope in the parking lot. General surgery was consulted who evaluated the CT done in the ED, stating there was free air in the abdomen which was minimal but could be related to recent operation but other etiologies should be considered such as perforated viscus. Patient was resuscitated with fluids, and given IV antibiotics. Patient is stable hemodynamically and only really complains of moderate to severe abdominal pain. General surgery and I recommend that the patient be transferred to the original surgeon at [facility] for continuity of care and attempts are being made at this time. We will trend lactic acid, lipase, amylase, hemoglobin in the meantime monitor for acute decompensation. Patient still has fairly significant abdominal pain as well as anxiety. Home Meds Active Scripts Polyethylene Glycol* (Miralax*) 17 Gm Powd.pack, 17 GM PO DAILY, #5 PACKET Prov:MARIA DE JESUS VILLA DO 09/25/16 Oxycodone HCl/Acetaminophen (Percocet 7.5-325 mg Tablet) 1 Each Tablet, 1 EACH PO Q6, #20 TAB Prov:MARIA DE JESUS VILLA DO 09/25/16 Reported Medications Hydrocodone/Acetaminophen ([place] 5-325 Tablet) Unknown Strength Tablet, 1 EACH PO DAILY Y for NEEDED, TAB 09/25/16 Docusate Sodium* (Colace*) 100 Mg Capsule, 100 MG PO Q24H Y for CONSTIPATION, # 30 CAP 09/25/16 Discontinued Reported Medications Multivit/Min/Fol Ac/Iron/Pren* ( S*) 1 Tab Tab, 1 TAB PO DAILY, TAB 10/13/15 Follow-up Plan Follow up with your primary care physician and surgeon as soon as possible. Primary Care Provider Care Physician No Primary Time spent on discharge: > 30 minutes Pending Labs Laboratory Tests Test 09/25/16 18:48 09/25/16 19:08 09/25/16 21:00 09/25/16 23:05 White Blood Count 21.410^3/ul (4.8-10.8) Red Blood Count 3.9510^6/ul (4.20-5.40) Hemoglobin 11.0g/dl (12.0-16.0) Hematocrit 34.7% (37.0-47.0) Mean Corpuscular Volume 87.8fl (82.0-101.0) Mean Corpuscular Hemoglobin 27.8pg (29.0-33.0) Mean Corpuscular Hemoglobin Concent 31.7g/dl (32.0-37.0) Red Cell Distribution Width 14.4% (11.5-14.5) Platelet Count 57518^3/UL (140-415) Mean Platelet Volume 10.9fl (7.4-10.4) Neutrophils % 81.2% (39.0-77.0) Lymphocytes % 12.7% (15.0-51.0) Monocytes % 2.9% (0.0-11.0) Eosinophils % 1.6% (0.0-7.0) Basophils % 0.3% (0.0-2.0) Nucleated Red Blood Cells % 0.0/100WBC (0.0-0.0) Neutrophils # 17.410^3/ul (1.6-7.5) Lymphocytes # 2.710^3/ul (0.8-2.9) Monocytes # 0.610^3/ul (0.3-0.9) Eosinophils # 0.310^3/ul (0.0-0.5) Basophils # 0.110^3/ul (0.0-0.1) Nucleated Red Blood Cells # 0.010^3/ul (0.0-0.0) Lactic Acid Level 2.0mmol/L (0.5-2.0) 1.8mmol/L (0.5-2.0) 1.4mmol/L (0.5-2.0) Test 09/26/16 04:46 09/26/16 11:37 White Blood Count 13.310^3/ul (4.8-10.8) Red Blood Count 3.2910^6/ul (4.20-5.40) Hemoglobin 9.2g/dl (12.0-16.0) 8.9g/dl (12.0-16.0) Hematocrit 28.7% (37.0-47.0) 27.8% (37.0-47.0) Mean Corpuscular Volume 87.2fl (82.0-101.0) Mean Corpuscular Hemoglobin 28.0pg (29.0-33.0) Mean Corpuscular Hemoglobin Concent 32.1g/dl (32.0-37.0) Red Cell Distribution Width 14.5% (11.5-14.5) Platelet Count 88797^3/UL (140-415) Mean Platelet Volume 10.8fl (7.4-10.4) Neutrophils % 80.9% (39.0-77.0) Lymphocytes % 11.3% (15.0-51.0) Monocytes % 5.4% (0.0-11.0) Eosinophils % 1.1% (0.0-7.0) Basophils % 0.2% (0.0-2.0) Nucleated Red Blood Cells % 0.0/100WBC (0.0-0.0) Neutrophils # 10.710^3/ul (1.6-7.5) Lymphocytes # 1.510^3/ul (0.8-2.9) Monocytes # 0.710^3/ul (0.3-0.9) Eosinophils # 0.110^3/ul (0.0-0.5) Basophils # 0.010^3/ul (0.0-0.1) Nucleated Red Blood Cells # 0.010^3/ul (0.0-0.0) Sodium Level 142mmol/L (135-144) Potassium Level 3.8mmol/L (3.5-5.1) Chloride Level 105mmol/L (97-110) Carbon Dioxide Level 23mmol/L (21-31) Anion Gap 18 (8-16) Blood Urea Nitrogen 8mg/dl (7-20) Creatinine 0.51mg/dl (0.44-1.00) Glucose Level 104mg/dl (70-220) Calcium Level 8.4mg/dl (8.4-10.2) Phosphorus Level 4.0mg/dl (2.5-4.9) Magnesium Level 1.7mg/dl (1.7-2.5) Total Bilirubin 0.4mg/dl (0.2-1.3) Direct Bilirubin 0.00mg/dl (0.00-0.20) Indirect Bilirubin 0.4mg/dl (0-1.1) Aspartate Amino Transf (AST/SGOT) 16IU/L (15-46) Alanine Aminotransferase (ALT/SGPT) 28IU/L (13-69) Alkaline Phosphatase 65IU/L (42-121) Total Protein 6.2g/dl (6.1-8.1) Albumin 3.0g/dl (3.3-4.9) Globulin 3.20g/dl (1.3-3.2) Albumin/Globulin Ratio 0.93 Amylase Level 80U/L (11-123) Lipase 54U/L (23-300) MUNA CHESTER Sep 26, 2016 14:01
[2016-09-26 19:19] LABS: HEMATOCRIT 26.7 % (37.0-47.0); HEMOGLOBIN 8.4 g/dl (12.0-16.0)
== END 2016-09-26 22:50 | disposition short-term general hospital (02) | DRG 872 ==
LOC: E/R 18:34 → PP2 22:58 → MS4 09-26 02:54
PROVIDERS: ADMIT Internal Medicine; ATTEND Internal Medicine
DX: A41.9 Sepsis, unspecified organism (principal); I95.9 Hypotension, unspecified; K76.0 Fatty (change of) liver, not elsewhere classified; E89.822 Postprocedural seroma of an endocrine system organ or structure following an endocrine system procedure; K86.89 Other specified diseases of pancreas; G89.18 Other acute postprocedural pain; E86.0 Dehydration; N83.201 Unspecified ovarian cyst, right side; R55 Syncope and collapse; R10.9 Unspecified abdominal pain; Y83.8 Other surgical procedures as the cause of abnormal reaction of the patient, or of later complication, without mention of misadventure at the time of the procedure; Z90.411 Acquired partial absence of pancreas
CPT/HCPCS: 36415; 71010; 80053; 82150; 83605; 83690; 83735; 84100; 85014; 85018; 85025; 86850; 86900; 86901; 87040; 87070; 87081; 87086; 93005; 96374; 96375; 96376; J1170; J1200; J2060; J2270; J2405; J2543; J7030

== ENCOUNTER 2017-08-25 10:21 | Emergency (ER) | END 2017-08-25 11:03 | disposition home or self-care (01) ==

== ENCOUNTER 2017-09-20 10:30 | Emergency (ER) | END 2017-09-20 13:05 | disposition home or self-care (01) ==

== ENCOUNTER 2018-06-02 15:42 | Emergency (ER) | payer MEDICAID ==
[~2018-06-02] VITALS: Ht 160 cm; Wt 86.0 kg
[~2018-06-02 15:42] MED LIST changes: +BENZ-6 PO; +D-ME473S2 PO; +HYDR-4011 PO; -HYDR-906 PO; +NAPR-985 PO; +ONDA4TAB8 PO; -PRENAT PO
[2018-06-02 15:56] VITALS: BP 115/67; PULSE 80; RESP 18; Ht 160 cm; Wt 86.0 kg
[2018-06-02] MEDS ORDERED: KETOROLAC 30 MG INJ IM STA (18:22)
[2018-06-02] MEDS ORDERED: IBUP-1542 PO (20:47)
[2018-06-02] MEDS ORDERED: ACET-141 PO (20:47)
--- NOTE | 2018-06-02 20:50 | ERD ---
ER Documentation Chief Complaint Chief Complaint Fall today with subsequent R hip, back & L knee pain HPI 32-year-old female presents for bilateral hip pain and right knee pain status post fall today. She states there is a the market and slipped over a piece of grape fell to the floor. States she has about 10 out of 10 pain at the time. She denies any head injury. ROS All systems reviewed and are negative except as per history of present illness. Medications Home Meds Active Scripts Acetaminophen* (Acetaminophen*) 500 MG Extra Strength Tablet, 500 MG PO Q4H PRN for PAIN AND OR ELEVATED TEMP, #30 TAB Prov:YUJANENE DO 06/02/18 Ibuprofen* (Motrin*) 600 Mg Tab, 600 MG PO Q6H PRN for PAIN AND OR ELEVATED TEMP, #30 TAB Prov:JANENE NICHOLAS DO 06/02/18 Ondansetron Hcl* (Zofran*) 4 Mg Tablet, 4 MG PO Q6H for NAUSEA AND/OR VOMITING, #30 TAB Prov:AMRIK HAYDEN PA-C 09/20/17 Naproxen* (Naprosyn*) 500 Mg Tablet, 500 MG PO BID PRN for PAIN AND/OR INFLAMM ATION, #30 TAB Prov:AMRIK HAYDEN PA-C 09/20/17 Naproxen* (Naprosyn*) 500 Mg Tablet, 500 MG PO BID PRN for PAIN AND/OR INFLAMMATION, #30 TAB Prov:RASHAWN BRANDT PA-C 08/25/17 Benzonatate* (Tessalon Perle*) 100 Mg Capsule, 100 MG PO Q8H PRN for COUGH, #30 CAP Prov:RASHAWN BRANDT PA-C 08/25/17 Dextromethorphan Hb-Promethazine Hcl* (Promethazine DM* Syrup) 473 Ml Syrup, 5 ML PO Q6 PRN for COUGH, #100 ML Prov:RASHAWN BRANDT PA-C 08/25/17 Polyethylene Glycol* (Miralax*) 17 Gm Powd.pack, 17 GM PO DAILY, #5 PACKET Prov:MARIA DE JESUS VILLA DO 09/25/16 Oxycodone HCl/Acetaminophen (Percocet 7.5-325 mg Tablet) 1 Each Tablet, 1 EACH PO Q6, #20 TAB Prov:MARIA DE JESUS VILLA DO 09/25/16 Reported Medications Hydrocodone/Acetaminophen ([place] 5-325 Tablet) Unknown Strength Tablet, 1 EACH PO DAILY PRN for NEEDED, TAB 09/25/16 Docusate Sodium* (Colace*) 100 Mg Capsule, 100 MG PO Q24H PRN for CONSTIPATION, #30 CAP 09/25/16 Allergies Allergies: Coded Allergies: vancomycin (Verified Allergy, Mild, ITCHINESS, 08/25/17) PMhx/Soc History of Surgery: Yes (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, Cs x2) Anesthesia Reaction: No Hx Neurological Disorder: No Hx Respiratory Disorders: No Hx Cardiac Disorders: No Hx Psychiatric Problems: No Hx Miscellaneous Medical Probl: Yes (Pre diabetic, gallstones) Hx Alcohol Use: Yes (ocassionally) Hx Substance Use: No Hx Tobacco Use: No Smoking Status: Never smoker Physical Exam Vitals Vital Signs Date Temp Pulse Resp B/P (MAP) Pulse Ox O2 O2 Flow FiO2 Time Delivery Rate 06/02/18 99.4 80 18 115/67 97 15:56 (83) Physical Exam Const: No acute distress Resp: Clear to auscultation bilaterally Cardio: Regular rate and rhythm, no murmurs, bilateral dorsalis pedis pulses Abd: Soft, non tender, non distended. Normal bowel sounds Skin: No petechiae or rashes Back: Mild low back tenderness palpation in the paravertebral muscles. Ext: Bilateral hip tenderness palpation, left knee tenderness palpation with decreased range of motion. There is also mild left knee swelling noted. Neur: Awake and alert, bilateral lower extremity sensation intact Psych: Normal Mood and Affect Results 24 hrs Laboratory Tests Test 06/02/18 18:36 POC Beta HCG, Qualitative NEGATIVE Current Medications Medications Dose Sig/Mike Start Time Status Last (Trade) Ordered Route PRN Stop Time Admin Dose Reason Admin Ketorolac 30 mg ONCE STAT 06/02/18 DC 06/02/18 Tromethamine IM 18:22 18:48 (Toradol) 06/02/18 18:24 Procedures/MDM Medical Decision Making: Differential diagnosis includes but not limited to fracture, dislocation, muscle strain, ligamentous sprain. Patient appeared well on physical exam. There was tenderness over the bilateral hip and left knee area. Patient was neurovascularly intact ED course: Patient was given Toradol. Symptoms improved with treatment. Imaging: X-ray Pelvis 1V Interpreted by me: Bones: No fracture Joints: No dislocation Foreign body: None X-ray left knee 3V Interpreted by me: Bones: No fracture Joints: No dislocation Foreign body: None Patient likely has ligamentous sprain. Patient was provided with a left knee immobilizer for comfort. Prescription(s): Patient given prescription for supportive medication(s). Patient advised to follow up with PCP in 1-2 days. Patient advised to return to ED for new or worsening symptoms. Patient stable on discharge from the ED. Disclaimer: Inadvertent spelling and grammatical errors are likely due to EHR/dictation software use and do not reflect on the overall quality of patient care. Also, please note that the electronic time recorded on this note does not necessarily reflect the actual time of the patient encounter. Departure Diagnosis: Primary Impression: Fall with no significant injury Encounter type: initial encounter Qualified Codes: W19.XXXA - Unspecified fall, initial encounter Additional Impressions: Left knee pain Chronicity: acute Qualified Codes: M25.562 - Pain in left knee Hip pain Laterality: left Qualified Codes: M25.552 - Pain in left hip Condition: Fair Patient Instructions: Hip Strain, Knee Sprain Referrals: [facility] YOU HAVE RECEIVED A MEDICAL SCREENING EXAM AND THE RESULTS INDICATE THAT YOU DO NOT HAVE A CONDITION THAT REQUIRES URGENT TREATMENT IN THE EMERGENCY DEPARTMENT. FURTHER EVALUATION AND TREATMENT OF YOUR CONDITION CAN WAIT UNTIL YOU ARE SEEN IN YOUR DOCTORS OFFICE WITHIN THE NEXT 1-2 DAYS. IT IS YOUR RESPONSIBILITY TO MAKE AN APPOINTMENT FOR FOLOW-UP CARE. IF YOU HAVE A PRIMARY DOCTOR --you should call your primary doctor and schedule an appointment IF YOU DO NOT HAVE A PRIMARY DOCTOR YOU CAN CALL OUR PHYSICIAN REFERRAL HOTLINE AT IF YOU CAN NOT AFFORD TO SEE A PHYSICIAN YOU CAN CHOSE FROM THE FOLLOWING [facility] [address] [facility] [address] [facility] [address] [facility] [address] [facility] [address] [facility]. [facility]. [address] Additional Instructions: Llame al doctor MAANA y grace bird RAFFAELE PARA DENTRO DE 1-2 CHRISTOPHER.Dgale a la secretaria que nosotros le instruimos hacer esta raffaele.Avise o llame si kim condicin se empeora antes de la raffaele. Regresa aqui si peor o no mejor. JANENE NICHOLAS DO Jun 02, 2018 20:50
== END 2018-06-02 21:04 | disposition home or self-care (01) ==
LOC: FTE 15:42
DX: M25.562 Pain in left knee (principal); M25.552 Pain in left hip
CPT/HCPCS: 29505; 72170; 73562; 81025; 96372; J1885; Z7502